=== PATIENT | female | born 1965 | race Caucasian/White ===

== ENCOUNTER 2021-05-21 01:05 | Observation (INO) ==
[2021-05-21] MEDS ORDERED: ONDANSETRON INJ 2 MG/ML 2 ML VIAL IV STA (01:34)
[2021-05-21] MEDS ORDERED: HYDROmorphone INJ 0.5 MG/0.5 ML SYR IV STA (01:34)
[2021-05-21] MEDS ORDERED: SODIUM CHLORIDE 0.9% 500 ML IV SCH (01:45)
--- NOTE | 2021-05-21 01:53 | Emergency Department Note ---
Impression & Plan Acute cholecystitis Admit to general surgery ED Provider Note NAME: ABEBE DIAZ AGE: 55 SEX: F ARRIVES VIA: Walk-In INFORMANT: Patient ED PROVIDER(S): Tanya Montiel DO CHIEF COMPLAINT: Right upper quadrant abdominal pain and vomiting PLAN: Disposition: Admit to Dr. Miranda Condition: Stable MEDICAL DECISION MAKING: This is a 55-year-old female patient with a history of cholelithiasis who presents to the emergency department with right upper quadrant abdominal pain and vomiting. The patient is from [place] visiting the area for the [employer]. She had sausage for breakfast and developed nausea, vomiting, right upper quadrant abdominal pain, diarrhea and chills. Laboratory studies were unremarkable. The patient's pain was slightly relieved with IV Dilaudid. Ultrasound shows a positive sonographic Campbell sign with acute cholelithiasis. Triage Nursing notes reviewed and agree with them. Vital Signs: reviewed and unremarkable Differential diagnosis: Cholelithiasis; choledocholithiasis; cholecystitis, pancreatitis ER treatment provided: IV normal saline IV Zofran IV Dilaudid Diagnostics interpreted by me: Cardiac Monitoring: Normal sinus rhythm at 82 Laboratory studies: See below Imaging studies: As per stat rad Gallbladder ultrasound: Hydropic gallbladder with numerous gallstones. This along with positive sonographic Campbell sign suggest acute cholecystitis in the appropriate clinical setting. No gallbladder wall thickening or pericholecystic fluid is appreciated however. Possible focal adenomyosis in the gallbladder fundus wall. Polycystic changes of the liver. Debris is present in several of the visualized cysts. No hydronephrosis of the right kidney. Normal diameter of the common bile duct measuring 5 to 6 mm. HPI: 55/F arrives for evaluation of right upper quadrant pain. The patient is from [place] visiting the area for the [employer]. She had sausage for breakfast and developed nausea, vomiting, right upper quadrant abdominal pain, diarrhea and chills. The patient has a known history of cholelithiasis. She has seen a surgeon at home and was planning to have elective cholecystectomy sometime this fall or in July. After eating the sausage this morning, her symptoms seem to flareup. ROS: See above HPI for pertinent positives & negatives. A total of 10 systems reviewed and were otherwise negative. PAST MEDICAL HISTORY:Cholelithiasis PAST SURGICAL HISTORY:See Below FAMILY HISTORY:See Below SOCIAL HISTORY:The patient is and lives with her in [place], [place]. HOME MEDICATIONS:See list ALLERGIES:None VITALS:See Below PHYSICAL EXAMINATION: HEENT: Head - normocephalic and atraumatic. Pupils are equal, round, and reactive to light. Extraocular eye muscles are intact, and sclera are anicteric. Nose - moist nasal mucosa without discharge. Mouth - moist buccal mucosa. Oropharynx is nonerythematous and there is no tonsillar exudate or edema noted. Neck: Supple; no cervical lymphadenopathy or thyromegaly Heart: Regular rate and rhythm. There is a normal S1 and S2 with no murmurs, clicks, or gallops appreciated. Lungs: Clear to auscultation bilaterally with no wheezes, rales, or rhonchi. Abdomen: Soft, moderately distended with exquisite tenderness to palpation in t he right upper quadrant of the abdomen. There are no palpable pulsatile masses or hepatosplenomegaly. There is moderate guarding in the right upper quadrant of the abdomen. There is positive rebound. Extremities: No evidence of cyanosis, clubbing, or edema. There are easily palpable peripheral pulses. Skin: warm and dry with good turgor and no rashes. ED COURSE: Times/Reassessments: 0120: Patient was evaluated in room B9. A complete history and physical was performed. An IV lock was initiated and labs were drawn as above. The patient was given a 500 cc bolus of normal saline. She was given 0.5 mg of IV Dilaudid for her pain. She was given 4 mg of IV Zofran for the nausea. She will go for ultrasound of the right upper quadrant. 0240: I reevaluated the patient at this time and she is sound asleep. Patient came back from ultrasound and I reviewed the results of the laboratory studies with her as well as the results of the ultrasound. Covid testing was performed I consulted with Dr. Miranda who will admit the patient to the hospital for acute cholecystectomy. Tanya Montiel, Past Med/Surg History Social History Smoking Status: Never smoker Hx Alcohol Use: No Hx Substance Use: No Preferred Language: Belizean Communication Ability: Effective Correspondence Section Supervisor Required: No Beliefs That Will Affect Care: None Current Living Situation: Spouse Feels Safe at Home: Yes Assistive Devices: None Allergies Allergies Allergy/AdvReac Type Severity Reaction Status Date / Time No Known Allergies Allergy Unverified 05/21/21 01:43 Home Meds Home Medications Medication Instructions Recorded Confirmed Prempro 1 tab PO DAILY 05/21/21 05/21/21 celecoxib 200 mg capsule (Celebrex) 200 mg PO DAILY 05/21/21 05/21/21 cholecalciferol (vitamin D3) 25 75 mcg PO DAILY 05/21/21 05/21/21 mcg (1,000 unit) tablet (Vitamin D3) cyanocobalamin (vitamin B-12) 1,000 mcg PO DAILY 05/21/21 05/21/21 1,000 mcg tablet (Vitamin B-12) pantoprazole 20 mg tablet,delayed 20 mg PO DAILY 05/21/21 05/21/21 release Previous Rx's Medication Instructions Recorded ondansetron HCl 4 mg tablet 4 mg PO DAILY PRN 4 Days #10 tab 05/21/21 (Zofran) oxycodone-acetaminophen 5 mg-325 1 tab PO Q4H PRN #10 tab 05/21/21 mg tablet (Percocet) Results & Data (ED) Vital Signs Vital Signs - 24 hr 05/21/21 01:17 05/21/21 03:59 Temperature 36.3 C L Temperature Source Temporal Artery Scan Pulse Rate 82 Pulse Rate [Right Finger] 61 Respiratory Rate 20 20 Respiratory Effort / Characteristics Non-Labored Spontaneous Respiratory Depth Normal Respiratory Pattern Regular Blood Pressure 111/79 Blood Pressure [Right Arm] 122/78 Blood Pressure Mean 89 Blood Pressure Mean [Right Arm] 92 Blood Pressure Position Sitting Blood Pressure Position [Right Arm] Sitting Pulse Oximetry 97 98 Oxygen Delivery Method Room Air Room Air Sepsis Recent Fever Within 48 Hours No Sepsis New/Unexplained Change in Mental Status N/A Sepsis Action Taken by Nursing No Action Required Laboratory Data Result diagrams: 05/21/21 01:45 05/21/21 01:45 Lab Results 05/21/21 05/21/21 Range/Units 01:45 01:45 WBC 10.88 H (4.8-10.8) K/uL RBC 4.58 (4.2-5.4) M/uL Hgb 14.0 (12.0-16.0) g/dL Hct 41.1 (37-47) % MCV 89.7 (80-100) fL MCH 30.6 (25-34) pg MCHC 34.1 (32-36) g/dL RDW Std Deviation 42.0 (36.4-46.3) fL RDW Coeff of Steven 12.8 (11.5-14.5) % Plt Count 348 (130-400) K/uL MPV 10.1 (7.4-10.4) fL Immature Gran % (Auto) 0.1 % Neut % (Auto) 83.6 % Lymph % (Auto) 11.9 % Shasta % (Auto) 3.9 % Eos % (Auto) 0.2 % Baso % (Auto) 0.3 % Neut # (Auto) 9.10 H (1.4-6.5) K/uL Lymph # (Auto) 1.30 (1.2-3.4) K/uL Shasta # (Auto) 0.42 (0.11-0.59) K/uL Eos # (Auto) 0.02 (0-0.5) K/uL Baso # (Auto) 0.03 (0-0.2) K/uL Immature Gran # (Auto) 0.01 (0.00-0.02) K/uL Sodium 136 (136-145) mmol/L Potassium 3.8 (3.5-5.1) mmol/L Chloride 105 (98-107) mmol/L Carbon Dioxide 24 (21-32) mmol/L Anion Gap 7.0 (3-11) BUN 10 (7-18) mg/dl Creatinine 0.82 (0.6-1.2) mg/dl Est Cr Clr Drug Dosing 80.3 ml/min Est GFR ( Amer) 92.1 ml/min Est GFR (Non-Af Amer) 79.4 ml/min BUN/Creatinine Ratio 12.7 (10-20) Glucose 119 H (70-99) mg/dl Calcium 8.4 L (8.5-10.1) mg/dl Total Bilirubin 0.7 (0.2-1) mg/dl AST 21 (15-37) U/L ALT 25 (12-78) U/L Alkaline Phosphatase 78 (45-117) U/L Total Protein 6.9 (6.4-8.2) gm/dl Albumin 3.8 (3.4-5.0) gm/dl Globulin 3.1 (2.5-4.0) gm/dl Albumin/Globulin Ratio 1.2 (0.9-2) Lipase 147 (73-393) U/L Administered Medications Ampicillin Sodium/Sulbactam Sodium 3,000 mg/ Sodium Chloride 108 mls @ 200 mls/hr IV Q6H ELIAS; Protocol Stop: 05/31/21 09:44 Last Admin: 05/21/21 14:55 Dose: 200 mls/hr Documented by: [id number] Infusion: 05/21/21 11:05 Dose: 0 mls/hr Documented by: [id number] Admin: 05/21/21 10:16 Dose: 200 mls/hr Documented by: [id number] Sodium Chloride (Nss 1000ml) 1,000 mls @ 125 mls/hr IV .Q8H ELIAS Stop: 06/20/21 09:14 Last Infusion: 05/21/21 14:57 Dose: 125 mls/hr Documented by: [id number] Infusion: 05/21/21 11:58 Dose: 0 mls/hr Documented by: [id number] Admin: 05/21/21 11:21 Dose: 125 mls/hr Documented by: [id number] Infusion: 05/21/21 11:21 Dose: 125 mls/hr Documented by: [id number] Admin: 05/21/21 10:16 Dose: 125 mls/hr Documented by: [id number] Ondansetron HCl (Ondansetron Inj 2 Mg/Ml 2 Ml Vial) 4 mg IV Q4H PRN PRN Reason: Nausea And Vomiting Stop: 06/20/21 09:04 Last Admin: 05/21/21 11:23 Dose: 4 mg Documented by: [id number] Oxycodone/Acetaminophen (Oxycodone/Acetaminophen 5mg/325mg Tab) 1 tab PO Q4H OH N PRN Reason: MODERATE Pain (4,5,6) & Pre PT Stop: 06/04/21 09:04 Last Admin: 05/21/21 09:36 Dose: 1 tab Documented by: [id number] Pantoprazole Sodium (Pantoprazole 40 Mg Tab) 40 mg PO DAILY ELIAS Stop: 06/20/21 09:04 Last Admin: 05/21/21 11:21 Dose: 40 mg Documented by: [id number] Discontinued Medications Bupivacaine HCl (Bupivacaine 0.5 % 5 Mg/1 Ml Mpf 30ml Vial) Confirm Administered Dose 30 ml .ROUTE .STK-MED ONE Stop: 05/21/21 12:18 Last Admin: 05/21/21 12:40 Dose: 30 ml Documented by: [id number] Hydromorphone HCl (Hydromorphone Inj 0.5 Mg/0.5 Ml Syr) 0.5 mg IV NOW STA Stop: 05/21/21 01:35 Last Admin: 05/21/21 01:56 Dose: 0.5 mg Documented by: [id number] Sodium Chloride (Nss) 500 mls @ 999 mls/hr IV .Q31M ELIAS Stop: 05/21/21 02:15 Last Infusion: 05/21/21 02:30 Dose: 0 mls/hr Documented by: [id number] Admin: 05/21/21 01:56 Dose: 999 mls/hr Documented by: [id number] Sodium Chloride (Nss) 500 mls @ 125 mls/hr IV .Q4H ELIAS Stop: 06/20/21 05:14 Last Infusion: 05/21/21 10:13 Dose: 0 mls/hr Documented by: [id number] Admin: 05/21/21 09:06 Dose: 125 mls/hr Documented by: [id number] Infusion: 05/21/21 09:06 Dose: 125 mls/hr Documented by: [id number] Admin: 05/21/21 05:20 Dose: 125 mls/hr Documented by: [id number] Miscellaneous (Surgicel Absorb Hemostat 2in X 14in) 1 ea TOP ONCE ONE Stop: 05/21/21 13:26 Last Admin: 05/21/21 13:41 Dose: 1 ea Documented by: [id number] Non-Formulary Medication (Prempro) 1 tab PO DAILY [facility] Stop: 06/20/21 09:04 Last Admin: 05/21/21 09:42 Dose: Not Given Documented by: [id number] Ondansetron HCl (Ondansetron Inj 2 Mg/Ml 2 Ml Vial) 4 mg IV NOW STA Stop: 05/21/21 01:35 Last Admin: 05/21/21 01:56 Dose: 4 mg Documented by: [id number] Imaging Data Radiologist's Impression: Gallbladder Ultrasound 05/21/21 01:34 ULTRASOUND RIGHT UPPER QUADRANT ABDOMEN CLINICAL HISTORY: Right upper quadrant abdominal pain. COMPARISON STUDY: No priors. TECHNIQUE: Real-time, grayscale, and color flow sonography of the right upper quadrant of the abdomen was performed. Images are reviewed in the transverse and longitudinal planes. FINDINGS: Liver: The liver is normal in size and echotexture. There is no intrahepatic biliary ductal dilatation. The main portal vein is patent. There liver is infiltrated by numerous cysts. A probably simple cyst containing internal septation the left lobe measures up to 11.7 cm. Several cysts may contain i nternal debris. Gallbladder: The gallbladder is distended. No gallstones are identified. There are calcified shadowing gallstones. The gallbladder wall appears mildly thicken ed and edematous. There is trace pericholecystic fluid. A sonographic Campbell's sign is reportedly present. Questioned adenomyomatosis in the fundal region. The common bile duct measures up to 0.6 cm in diameter. Pancreas: Visualized portions of the pancreatic head and body are normal in appearance. The splenic vein is patent. Right kidney: Survey images of the right kidney demonstrate normal size and echotexture. There is no hydronephrosis. Ascites: None. IMPRESSION: 1. Cholelithiasis with sonographic evidence of acute cholecystitis. Surgical assessment is advised. 2. Question focal adenomyomatosis at the gallbladder fundus. 3. Multicystic liver as above. ACT 112: Negative or not required by law. Electronically signed by: Sung Collier M.D. 05/21/2021 6:24 AM Discharge Plan Visit Data Chief Complaint: Flank Pain Stated Complaint: GB SYMPTOMS-KNOWN STONES-SCHEDULED FOR SURGERY ED Provider: Tanya Montiel Discharge Problem: Acute cholecystitis Patient Disposition: Admitted As Inpatient Condition: Good Discharge Instructions Interventions: ED Discharge Assessment Last Done: 05/21/21 08:40
[2021-05-21 01:55] LABS: Basophils # (auto) 0.03 K/uL (0-0.2); Basophils % (auto) 0.3 %; Eosinophils # (auto) 0.02 K/uL (0-0.5); Eosinophils % (auto) 0.2 %; Hematocrit (blood only) 41.1 % (37-47); Immature Granulocytes # (auto) 0.01 K/uL (0.00-0.02); Immature Granulocytes % (auto) 0.1 %; Lymphocytes % (auto) 11.9 %; Mean Corpuscular Hemoglobin 30.6 pg (25-34); Mean Corpuscular Hgb Conc 34.1 g/dL (32-36); Mean Corpuscular Volume 89.7 fL (80-100); Mean Platelet Volume 10.1 fL (7.4-10.4); Monocytes # (auto) 0.42 K/uL (0.11-0.59); Monocytes % (auto) 3.9 %; Neutrophils % (auto) 83.6 %; Platelet Count 348 K/uL (130-400); RDW Coefficient of Variation 12.8 % (11.5-14.5); Red Blood Count 4.58 M/uL (4.2-5.4); White Blood Count 10.88 K/uL (4.8-10.8)
[2021-05-21 02:13] LABS: Albumin Level 3.8 gm/dl (3.4-5.0); BUN Creatinine Ratio 12.7 (10-20); Calcium 8.4 mg/dl (8.5-10.1); Creatinine Clr Calc Pharmacy 80.3 ml/min; Est GFR (African American) 92.1 ml/min; Est GFR (Non-African American) 79.4 ml/min; Potassium 3.8 mmol/L (3.5-5.1)
[2021-05-21 02:15] LABS: Albumin Globulin Ratio 1.2 (0.9-2); Bilirubin,Total 0.7 mg/dl (0.2-1); Globulin 3.1 gm/dl (2.5-4.0); Total Protein 6.9 gm/dl (6.4-8.2)
[2021-05-21] MEDS: SODIUM CHLORIDE 0.9% 500 ML IV SCH ×2 (05:20→09:06)
--- NOTE | 2021-05-21 06:25 | Ultrasound Report ---
ULTRASOUND RIGHT UPPER QUADRANT ABDOMEN CLINICAL HISTORY: Right upper quadrant abdominal pain. COMPARISON STUDY: No priors. TECHNIQUE: Real-time, grayscale, and color flow sonography of the right upper quadrant of the abdomen was performed. Images are reviewed in the transverse and longitudinal planes. FINDINGS: Liver: The liver is normal in size and echotexture. There is no intrahepatic biliary ductal dilatatio n. The main portal vein is patent. There liver is infiltrated by numerous cysts. A probably simple cy st containing internal septation the left lobe measures up to 11.7 cm. Several cysts may contain inte rnal debris. Gallbladder: The gallbladder is distended. No gallstones are identified. There are calcified shadowin g gallstones. The gallbladder wall appears mildly thickened and edematous. There is trace pericholecy stic fluid. A sonographic Campbell's sign is reportedly present. Questioned adenomyomatosis in the fund al region. The common bile duct measures up to 0.6 cm in diameter. Pancreas: Visualized portions of the pancreatic head and body are normal in appearance. The splenic v ein is patent. Right kidney: Survey images of the right kidney demonstrate normal size and echotexture. There is no hydronephrosis. Ascites: None. IMPRESSION: 1. Cholelithiasis with sonographic evidence of acute cholecystitis. Surgical assessment is advised. 2. Question focal adenomyomatosis at the gallbladder fundus. 3. Multicystic liver as above. ACT 112: Negative or not required by law. Electronically signed by: Sung Collier M.D. 05/21/2021 6:24 AM
[2021-05-21] MEDS ORDERED: MoRPHine SULFATE 2 MG/ML CARP IV PRN (09:05)
[2021-05-21] MEDS ORDERED: PREMPRO PO SCH (09:05)
[2021-05-21] MEDS ORDERED: MoRPHine SULFATE 4 MG/ML 1 ML CARP\\VIAL IV PRN (09:05)
[2021-05-21] MEDS ORDERED: ONDANSETRON INJ 2 MG/ML 2 ML VIAL IV PRN ×2 (09:05→11:29)
[2021-05-21] MEDS ORDERED: oxyCODONE/ACETAMINOPHEN 5mg/325mg TAB PO PRN (09:05)
[2021-05-21] MEDS: oxyCODONE/ACETAMINOPHEN 5mg/325mg TAB PO PRN (09:36)
--- NOTE | 2021-05-21 09:43 | History & Physical Report ---
Date of Service May 21, 2021 Assessment & Plan (1) Cholecystitis with cholelithiasis: Plan: Discussed US findings with pt, wbc ct mildly elevated but LFT's normal. Her pain/ nausea is improving. Discussed that I would recommend lap cholecystectomy - if this is done here, I would like her to stay in town for additional 4-5 days following surgery (presuming no complication, could be longer otherwise). Also reviewed option of discharge today if tolerates clears and having her drive home ( with her). If symptoms persist at home, she could seek treatment there. After discussion, she prefers to try and get home. Will give clears and plan on discharge today if tolerates. Present on Admission?: Yes Admission and Anticipated Discharge Date Admission Date: May 21, 2021 History of Present Illness Chief Complaint: abdominal pain, nausea and vomiting Primary Care Provider: CYNTHIA GUNTER 55 yr old woman who was diagnosed with gallstones earlier this year on an ultrasound done for liver cysts. Has had a few attacks of pain since then and been seen in the ER near her home ([place], [place]). They were in town for the [employer] game yesterday and she had some sausage for breakfast. Developed sharp, stabbing, severe RUQ pain with nausea, vomiting, chills. Pain persisted and came to ER - given IVF, pain meds, zofran. No further nausea since last night. Pain is now decreased to a dull ache. Worse if she takes a deep breath in, better with pain medications. PSH: appendectomy Allergies Allergy/AdvReac Type Severity Reaction Status Date / Time No Known Allergies Allergy Unverified 05/21/21 01:43 Home Medications Medication Instructions Recorded Confirmed Type Prempro 1 tab PO DAILY 05/21/21 05/21/21 History celecoxib 200 mg capsule (Celebrex) 200 mg PO DAILY 05/21/21 05/21/21 History cholecalciferol (vitamin D3) 25 75 mcg PO DAILY 05/21/21 05/21/21 History mcg (1,000 unit) tablet (Vitamin D3) cyanocobalamin (vitamin B-12) 1,000 mcg PO DAILY 05/21/21 05/21/21 History 1,000 mcg tablet (Vitamin B-12) pantoprazole 20 mg tablet,delayed 20 mg PO DAILY 05/21/21 05/21/21 History release Past Med/Surg History Social History Smoking Status: Never smoker Hx Alcohol Use: No Hx Substance Use: No Preferred Language: Kinyarwanda Communication Ability: Effective Suede Brusher Required: No Beliefs That Will Affect Care: None Current Living Situation: Spouse Feels Safe at Home: Yes Assistive Devices: None Review of Systems Review of Systems: All systems reviewed & are unremarkable except as noted in HPI & below Physical Exam Constitutional: WD/WN, vitals as above Eyes: PERRL, conjunctivae normal, anicteric sclerae Neck: trachea midline, no thyromegaly Respiratory: normal respiratory effort, lungs clear to auscultation Cardiovascular: RRR, no murmur, no edema Gastrointestinal (Abdomen): Inspection/Auscultation: abdomen normal to inspection and normal bowel sounds; abdomen not distended Percussion/Palpation: + abdomen tender (epigastric and RUQ, no campbell's sign) and abdomen soft Musculoskeletal: no cyanosis or clubbing, extremities motor strength 5/5 Neurologic: awake; no focal motor deficits Psychiatric: A+Ox3, euthymic affect Results & Data Results & Data ([facility]) Vital Signs (Past 12 Hours) Vital Signs Temp Pulse Pulse Resp BP BP Pulse Ox 05/21/21 09:08 36.7 C 59 L 16 124/82 96 05/21/21 08:38 62 16 113/72 96 05/21/21 05:21 78 20 126/68 98 05/21/21 03:59 61 20 122/78 98 05/21/21 01:17 36.3 C L 82 20 111/79 97 Laboratory Results Abnormal lab results 05/21/21 05/21/21 Range/Units 01:45 01:45 WBC 10.88 H (4.8-10.8) K/uL Neut # (Auto) 9.10 H (1.4-6.5) K/uL Glucose 119 H (70-99) mg/dl Calcium 8.4 L (8.5-10.1) mg/dl Diagnostic Findings RUQ US reviewed - no pericholecystic fluid, no wall thickening. Gallstones and sonographic Campbell's sign are present. ULTRASOUND RIGHT UPPER QUADRANT ABDOMEN CLINICAL HISTORY: Right upper quadrant abdominal pain. COMPARISON STUDY: No priors. TECHNIQUE: Real-time, grayscale, and color flow sonography of the right upper quadrant of the abdomen was performed. Images are reviewed in the transverse and longitudinal planes. FINDINGS: Liver: The liver is normal in size and echotexture. There is no intrahepatic biliary ductal dilatation. The main portal vein is patent. There liver is infiltrated by numerous cysts. A probably simple cyst containing internal septation the left lobe measures up to 11.7 cm. Several cysts may contain int ernal debris. Gallbladder: The gallbladder is distended. No gallstones are identified. There are calcified shadowing gallstones. The gallbladder wall appears mildly thickened and edematous. There is trace pericholecystic fluid. A sonographic Campbell's sign is reportedly present. Questioned adenomyomatosis in the fundal region. The common bile duct measures up to 0.6 cm in diameter. Pancreas: Visualized portions of the pancreatic head and body are normal in appearance. The splenic vein is patent. Right kidney: Survey images of the right kidney demonstrate normal size and echotexture. There is no hydronephrosis. Ascites: None. IMPRESSION: 1. Cholelithiasis with sonographic evidence of acute cholecystitis. Surgical assessment is advised. 2. Question focal adenomyomatosis at the gallbladder fundus. 3. Multicystic liver as above. Code Status & VTE Plan VTE Prophylaxis Plan VTE Prophylaxis will be ordered: Yes
--- NOTE | 2021-05-21 09:52 | Discharge Summary ---
Date of Service May 21, 2021 Admission HPI Per Admitting Provider 55 yr old woman who was diagnosed with gallstones earlier this year on an ultrasound done for liver cysts. Has had a few attacks of pain since then and been seen in the ER near her home ([place], [place]). They were in town for the [employer] game yesterday and she had some sausage for breakfast. Developed sharp, stabbing, severe RUQ pain with nausea, vomiting, chills. Pain persisted and came to ER - given IVF, pain meds, zofran. No further nausea since last night. Pain is now decreased to a dull ache. Worse if she takes a deep breath in, better with pain medications. PSH: appendectomy Admission Exam (Per Admitting) Constitutional WD/WN, vitals as above Eyes PERRL, conjunctivae normal, anicteric sclerae Neck trachea midline, no thyromegaly Respiratory normal respiratory effort, lungs clear to auscultation Cardiovascular RRR, no murmur, no edema Gastrointestinal (Abdomen) Inspection/Auscultation: abdomen normal to inspection and normal bowel sounds; abdomen not distended Percussion/Palpation: + abdomen tender (epigastric and RUQ, no de la cruz's sign) and abdomen soft Musculoskeletal no cyanosis or clubbing, extremities motor strength 5/5 Neurologic awake; no focal motor deficits Psychiatric A+Ox3, euthymic affect Discharge Data Consultations 05/21/21 06:00 ED Decision to Admit Stat Procedures Performed none Hospital Course (1) Cholecystitis with cholelithiasis: Discussed US findings with pt, wbc ct mildly elevated but LFT's normal. Her pain/ nausea is improving. Discussed that I would recommend lap cholecystectomy - if this is done here, I would like her to stay in town for additional 4-5 days following surgery (presuming no complication, could be longer otherwise). Also reviewed option of discharge today if tolerates clears and having her drive home ( with her). If symptoms persist at home, she could seek treatment there. After discussion, she prefers to try and get home. Will give clears and plan on discharge today if tolerates. Discharge to seek care closer to home
[2021-05-21] MEDS: SODIUM CHLORIDE 0.9% 1000ML 1,000 ML IV SCH ×3 (10:16→23:25)
[2021-05-21] MEDS: AMPICILLIN/SULBACTAM SOD 3,000 MG in 0.9 % SODIUM CHLORIDE 100 ML IV SCH ×3 (10:16→21:21)
[2021-05-21] MEDS: PANTOprazole 40 MG TAB PO SCH (11:21)
[2021-05-21] MEDS ORDERED: ATROPINE SULFATE 0.1 MG/ML 10ML SYR IV PRN (11:29)
[2021-05-21] MEDS ORDERED: ePHEDrine sulfate 50 MG/ML AMP IV PRN (11:29)
[2021-05-21] MEDS ORDERED: fentaNYL citrate 100 MCG/2 ML VIAL IV PRN (11:29)
[2021-05-21] MEDS ORDERED: HYDROmorphone INJ 1 MG/ML SYRINGE IV PRN (11:29)
--- NOTE | 2021-05-21 11:31 | Anesthesiology Consultation ---
Date of Service May 21, 2021 Assessment & Plan (1) Encounter for pre-operative examination: History Surgery Operation Date: 05/21/21 14:00 Proposed Procedures p Laparoscopic Cholecystectomy - Kenzie Miranda MD Height/Weight Height: 5 ft 4 in Weight: 81.647 kg Allergies Allergy/AdvReac Type Severity Reaction Status Date / Time No Known Allergies Allergy Unverified 05/21/21 01:43 Medications Home Medications Medication Instructions Recorded Confirmed Last Taken Prempro 1 tab PO DAILY 05/21/21 05/21/21 05/20/21 celecoxib 200 mg capsule (Celebrex) 200 mg PO DAILY 05/21/21 05/21/21 05/20/21 22:30 extra dose for day cholecalciferol (vitamin D3) 25 75 mcg PO DAILY 05/21/21 05/21/21 05/20/21 mcg (1,000 unit) tablet (Vitamin D3) cyanocobalamin (vitamin B-12) 1,000 mcg PO DAILY 05/21/21 05/21/21 05/20/21 1,000 mcg tablet (Vitamin B-12) ondansetron HCl 4 mg tablet 4 mg PO DAILY PRN 4 Days #10 tab 05/21/21 Unknown (Zofran) oxycodone-acetaminophen 5 mg-325 1 tab PO Q4H PRN #10 tab 05/21/21 Unknown mg tablet (Percocet) pantoprazole 20 mg tablet,delayed 20 mg PO DAILY 05/21/21 05/21/21 05/20/21 release Active Medications Generic Name Dose Route Start Last Admin Trade Name Freq PRN Reason Stop Dose Admin Ampicillin Sodium/Sulbactam 108 mls @ 200 mls/hr 05/21/21 09:45 05/21/21 11:05 Sodium 3,000 mg/ Sodium IV 05/31/21 09:44 Infused Chloride Q6H ELIAS Infusion Protocol Sodium Chloride 1,000 mls @ 125 mls/hr 05/21/21 09:15 05/21/21 11:21 Nss 1000ml IV 06/20/21 09:14 125 mls/hr .Q8H ELIAS Administration Ondansetron HCl 4 mg 05/21/21 09:05 05/21/21 11:23 Ondansetron Inj 2 Mg/Ml 2 Ml Vial IV 06/20/21 09:04 4 mg Q4H PRN Administration Nausea And Vomiting Oxycodone/Acetaminophen 1 tab 05/21/21 09:05 05/21/21 09:36 Oxycodone/Acetaminophen 5mg/325mg Tab PO 06/04/21 09:04 1 tab Q4H PRN Administration MODERATE Pain (4,5,6) & Pre PT Pantoprazole Sodium 40 mg 05/21/21 09:05 05/21/21 11:21 Pantoprazole 40 Mg Tab PO 06/20/21 09:04 40 mg DAILY ELIAS Administration Social History Smoking Status: Never smoker Hx Alcohol Use: No Hx Substance Use: No Physical Exam Vital Signs Last Vital Signs Temp 36.7 C 05/21/21 09:08 Pulse 59 L 05/21/21 09:08 Resp 16 05/21/21 09:08 BP 124/82 05/21/21 09:08 Pulse Ox 96 05/21/21 09:08 Testing Laboratory Results 05/21/21 01:45 05/21/21 01:45
[2021-05-21] MEDS ORDERED: MIDAZOLAM HCL 1 MG/ML 2ML VIAL ONE (11:35)
[2021-05-21] MEDS ORDERED: fentaNYL citrate 100 MCG/2 ML VIAL ONE ×2 (11:35→12:38)
[2021-05-21] MEDS ORDERED: SCOPOLAMINE 1 MG TDSY TD ONE (12:06)
[2021-05-21] MEDS ORDERED: FAMOTIDINE/PF 20 MG/2 ML VIAL IV ONE (12:12)
[2021-05-21] MEDS ORDERED: ACETAMINOPHEN 1000 MG/100 ML IV IV ONE (12:12)
[2021-05-21] MEDS ORDERED: BUPIVACAINE 0.5 % 5 MG/1 ML MPF 30ML VIAL ONE (12:17)
[2021-05-21] MEDS ORDERED: PROPOFOL IV EMULSION 10 MG/ML 20 ML VIAL IV ONE (12:35)
[2021-05-21] MEDS ORDERED: LIDOCAINE 2% 2 ML VIAL/AMP(20MG/ML) INFIL ONE (12:35)
[2021-05-21] MEDS ORDERED: ONDANSETRON INJ 2 MG/ML 2 ML VIAL ONE (12:35)
[2021-05-21] MEDS ORDERED: METOCLOPRAMIDE HCL INJ 5 MG/ML 2 ML VIAL ONE (12:35)
[2021-05-21] MEDS ORDERED: ROCURONIUM BROMIDE 10 MG/ML 5 ML VIAL IV ONE (12:48)
[2021-05-21] MEDS ORDERED: DEXAMETHASONE SOD INJ 4 MG/ML VIAL ONE (12:49)
[2021-05-21] MEDS ORDERED: NEOSTIGMINE METHYLSULFATE 1 MG/ML 10ML VIAL ONE (12:51)
[2021-05-21] MEDS ORDERED: GLYCOPYRROLATE 0.2 MG/ML VIAL ONE (12:51)
[2021-05-21] MEDS ORDERED: SURGICEL ABSORB HEMOSTAT 2IN X 14IN TOP ONE (13:25)
[2021-05-21] MEDS ORDERED: KETOROLAC 30 MG/ML VIAL ONE (13:51)
--- NOTE | 2021-05-21 14:00 | Operative Report ---
Post Operative Report Pre & Post Diagnosis Operation Date: 05/21/21 14:00 Pre-Op Diagnosis: ACUTE CALCULOUS CHOLECYSTITIS Post-Op Diagnosis: ACUTE CALCULOUS CHOLECYSTITIS, LIVER CYSTS I identified the patient and participated in the time-out.: Yes Procedure Operation Date: 05/21/21 14:00 Actual Procedures p Laparoscopic Cholecystectomy(Not Applicable) - Kenzie Miranda MD Surgeon Kenzie Miranda MD Sales Commissions Analyst NONE Estimated Blood Loss 10 Findings Consistent with Post-Op Diagnosis Acutely inflamed gallbladder with small stones, right posterolateral portion of GB was on a large liver cyst in the GB fossa (pictures taken) Fluids 1100 cc Specimens gallbladder and contents Drains none Anesthesia Type General Complications none Disposition Accompanied Patient To Recovery: No Disposition: Recovery Room Indications 55 yr old woman with known liver cysts and gallstones developed acute cholecystitis while visiting in [facility] for [employer] game. As symptoms persisted, she consented for lap cholecystectomy. Description of Procedure She was on unasyn preoperatively. After the induction of GET, she had SCD's placed. Her abdomen was prepped and draped steriley. She was positioned in Trendelenburg. A supraumbilical incision was made and a Veress needle placed into the peritoneal cavity. This was tested with the saline drop test. Pneumoperitoneum was established. Initial pressure was 3 mmHg and this was taken to 15 mmHg. A 5 mm trocar was placed with the camera through the trocar site. The patient was positioned in reverse Trendelenburg. A 11 mm trocar was placed in the epigastrium and 2 5 mm in the right upper quadrant under direct vision. The liver was noted to be full of cysts. Photographs were taken. The gallbladder was acutely inflamed and distended. Adhesions were bluntly taken down. Dissection was begun at the triangle of Calot and the cystic artery and cystic duct identified. The cystic artery was doubly clipped on the remaining side singly clipped on the gallbladder side and divided. The cystic duct was cleared and critical view seen anteriorly and posteriorly. The cystic duct was clipped on the remaining side on the gallbladder side and divided. The gallbladder was quite friable and the retractor had torn a small hole through which some stones had escaped. These were carefully grasped with a stone forcep and removed. The gallbladder was then retracted over the edge of the liver. Dissection was continued. The posterior lateral portion on the right side of the gallbladder was adherent to a large liver cyst that appeared for all the world like a second gallbladder. This was all carefully and tediously . The gallbladder was placed in an Endobag and removed through the epigastric incision. The abdomen was irrigated until the effluent was clear. The abdomen was inspected and any remaining small stones removed. The abdomen was again irrigated and inspected. There was no evidence of any bleeding. The trochars were removed. The fascia of the epigastric incision was closed with 0 Vicryl stitches placed anteriorly. The skin of all 4 incisions was closed with running subcuticular 4-0 Vicryl suture. Half percent Marcaine had been used for local anesthesia in all the incisions. Steri-Strips and sterile dressings were applied. She was awakened and taken to recovery in stable condition. I attest to the content of the Intraoperative Record and any orders documented therein. Any exceptions are noted below.
--- NOTE | 2021-05-21 17:14 | Anesthesiology Progress Note ---
Date of Service May 21, 2021 Anesthesia Post Procedure Vital Signs Vital Signs: Temp Pulse Pulse Pulse Resp BP BP 05/21/21 16:44 57 L 16 104/69 05/21/21 15:51 65 16 96/67 L 05/21/21 15:23 56 L 16 100/67 05/21/21 14:53 36.5 C 50 L 15 104/71 05/21/21 14:40 37.1 C 52 L 14 106/64 05/21/21 14:30 60 13 105/71 05/21/21 14:20 55 L 13 108/71 05/21/21 14:10 68 16 117/85 05/21/21 14:03 36.2 C L 68 16 117/82 05/21/21 09:08 36.7 C 59 L 16 05/21/21 08:38 62 16 05/21/21 05:21 78 20 05/21/21 03:59 61 20 05/21/21 01:17 36.3 C L 82 20 111/79 BP Pulse Ox 05/21/21 16:44 95 05/21/21 15:51 93 05/21/21 15:23 95 05/21/21 14:53 98 05/21/21 14:40 96 05/21/21 14:30 97 05/21/21 14:20 100 05/21/21 14:10 96 05/21/21 14:03 99 05/21/21 09:08 124/82 96 05/21/21 08:38 113/72 96 05/21/21 05:21 126/68 98 05/21/21 03:59 122/78 98 05/21/21 01:17 97 Pain Intensity Right Ribs: Pain Intensity: 5 Transfer of Care Handoff Completed per policy Notes Mental Status: alert / awake / arousable and participated in evaluation Patient Amnestic to Procedure: Yes Nausea / Vomiting: adequately controlled Pain: adequately controlled Airway Patency, RR, SpO2: stable & adequate BP & HR: stable & adequate Hydration State: stable & adequate Anesthetic Complications: no major complications apparent and Pt Satisfied with anesthetic care
[2021-05-22] MEDS: oxyCODONE/ACETAMINOPHEN 5mg/325mg TAB PO PRN (02:25)
[2021-05-22] MEDS: AMPICILLIN/SULBACTAM SOD 3,000 MG in 0.9 % SODIUM CHLORIDE 100 ML IV SCH ×3 (02:25→16:20)
--- NOTE | 2021-05-22 06:25 | Electrocardiogram Report ---
Test Reason : Blood Pressure : / mmHG Vent. Rate : 055 BPM Atrial Rate : 055 BPM P-R Int : 198 ms QRS Dur : 082 ms QT Int : 426 ms P-R-T Axes : 068 062 060 degrees QTc Int : 407 ms Sinus bradycardia Otherwise normal ECG No previous ECGs available Confirmed by Danish Villafuerte ([id number]) on 05/22/2021 6:25:30 AM Referred By: REFERRED SELF Confirmed By:Danish Villafuerte
[2021-05-22] MEDS ORDERED: COUGH DROP (SUGAR FREE) LOZ 24 LOZ/1 BOX BUCCAL ONE (07:35)
[2021-05-22] MEDS: PANTOprazole 40 MG TAB PO SCH (07:37)
[2021-05-22] MEDS: SODIUM CHLORIDE 0.9% 1000ML 1,000 ML IV SCH (09:11)
--- NOTE | 2021-05-22 15:51 | Discharge Summary ---
Date of Service May 22, 2021 Admission HPI Per Admitting Provider 55 yr old woman who was diagnosed with gallstones earlier this year on an ultrasound done for liver cysts. Has had a few attacks of pain since then and been seen in the ER near her home ([place], [place]). They were in town for the [employer] game yesterday and she had some sausage for breakfast. Developed sharp, stabbing, severe RUQ pain with nausea, vomiting, chills. Pain persisted and came to ER - given IVF, pain meds, zofran. No further nausea since last night. Pain is now decreased to a dull ache. Worse if she takes a deep breath in, better with pain medications. PSH: appendectomy Principal Diagnosis Acute Cholecystitis Discharge Exam Constitutional WD/WN, vitals as above no acute distress and not ill appearing Respiratory normal respiratory effort; no respiratory distress, no labored breathing and no retractions Gastrointestinal (Abdomen) Inspection/Auscultation: abdomen normal to inspection; abdomen not distended Percussion/Palpation: + abdomen tender (mild at incision sites) and abdomen sof t; no guarding and abdomen not rigid Skin no rashes, warm and dry + incision (covered with dry dressings) Psychiatric A+Ox3, euthymic affect Discharge Data Allergies Allergy/AdvReac Type Severity Reaction Status Date / Time No Known Allergies Allergy Unverified 05/21/21 01:43 Consultations 05/21/21 06:00 ED Decision to Admit Stat Procedures Performed Operation Date: 05/21/21 14:00 Actual Procedures p Laparoscopic Cholecystectomy(Not Applicable) - Kenzie Miranda MD Ordered Studies 05/21/21 01:34 gallbladder Urgent Hospital Course (1) Cholecystitis with cholelithiasis: Patient was admitted to medical/surgical floor from emergency department and treated conservatively with antibiotics, pain management as needed, zofran as needed, and clear liquids diet. Dr. Miranda discussed lap cholecystectomy during this admission here vs discharge it tolerates clears and returning home for further management. Patient trialed clear liquids on 05/21/21 and had recurrence of pain and nausea so elected to proceed with laparoscopic cholecystectomy. Dr. Miranda took patient to OR for laparoscopic cholecystectomy. Patient found to have acute cholecystitis with large liver cyst at gallbladder fossa and multiple other small liver cysts. Patient tolerated procedure well and was transferred to recovery and then back to medical/surgical floor for postop treatment. IV Unasyn was continued, diet advanced as tolerated, PO Percocet and IV Morphine as needed for pain. POD # 1 , vitals stable, afebrile, pain controlled, no nausea. Tolerated regular diet but not passing flatus and still feels bloated. Otherwise feeling fine and would like to be discharged. She is staying in here for a couple days so if any concerns she is local. Patient was discharged home in stable condition. Total Time Total Time Spent Total Time Spent (In Minutes): 20 Total Time Includes: Examination of the Patient, Discharge Planning and Medication Reconciliation Discharge Plan Discharge Items Patient Disposition: Home - Self-Care Reason For Visit: ACUTE CHOLECYSTITIS Discharge Diagnosis: cholelithiasis with cholecystitis Condition on Discharge: Good Activity: Per Instructions section Lifting: No more than 10 pounds Lifting Comment: for 2 weeks Bathing: No limitations Bathing Comment: OK to shower i 24 hrs, remove outer gauze dressings first Sexual Activity: After two weeks Exercise/Sports: Gradually increase as tolerated Exercise Comment: 2 weeks Driving/Machine Use: Resume 3 days after discharge Non-emergency contact: Surgeon Call non-emergency contact if: you have any medication questions, your symptoms worsen, your pain is worsening, your pain is unusual for you, your temperature is above 101.5, your wound has increased redness, your wound has increased drainage and your wound pain has increased Follow-up/Referrals: ARMANDO XIE [Other] Diet: Low Fat Addtl Attending Provider Instructions: Ok to use ice pack to top incision if sore. Call [phone] in 1 week to go over pathology results and check in. Alternatively, call once discharged to set up postop appt for 2 weeks after surgery (can be via telemed or telephone also). Pending Studies at Discharge: Yes Studies:: pathology Stand-Alone Forms: [facility] [employer], Smoking Cessation Medications and DC Order Prescriptions: New ondansetron HCl [Zofran] 4 mg tablet 4 mg PO DAILY PRN (Reason: nausea and vomiting) 4 Days Qty: 10 RF: 0 oxycodone-acetaminophen [Percocet] 5-325 mg tablet 1 tab PO Q4H PRN (Reason: pain) Qty: 10 RF: 0 Continued celecoxib [Celebrex] 200 mg Capsule 200 mg PO DAILY RF: 0 cyanocobalamin (vitamin B-12) [Vitamin B-12] 1,000 mcg Tablet 1,000 mcg PO DAILY RF: 0 pantoprazole 20 mg Tablet,Delayed Release (Dr/Ec) 20 mg PO DAILY RF: 0 cholecalciferol (vitamin D3) [Vitamin D3] 25 mcg (1,000 unit) Tablet 75 mcg PO DAILY RF: 0 Prempro 1 tab PO DAILY RF: 0 Discharge Orders: Discharge Order (Routine); Ordered 05/22/21 Ordered By: Jacquie Ram Admission Data Admit Date/Time: 05/21/21 05:15 Attending Provider: Kenzie Miranda Admit Provider: Kenzie Miranda Primary Care Provider: Armando Xie Other Providers: Kenzie Miranda
== END 2021-05-22 16:44 | disposition home or self-care (01) ==
LOC: 3E 01:05 → ED 01:05 → 3E 08:40